=== PATIENT | female | born 1975 | race Asian ===

== ENCOUNTER 2017-06-04 03:34 | Emergency (ER) | payer OTHER ==
[~2017-06-04] VITALS: Ht 162.6 cm; Wt 52.2 kg
[2017-06-04 03:40] VITALS: Ht 162.6 cm; Wt 52.2 kg
[2017-06-04 06:27] VITALS: BP 99/65
== END 2017-06-04 06:27 | disposition home or self-care (01) ==
LOC: ED 03:34
DX: J02.9 Acute pharyngitis, unspecified (principal)
CPT/HCPCS: J1100; J1885